=== PATIENT | male | born 1960 | race Caucasian/White ===

== ENCOUNTER 2022-06-06 16:08 | Emergency (ER) | payer BC ==
[~2022-06-06] VITALS: Ht 170.2 cm; Wt 70.3 kg
--- NOTE | 2022-06-06 16:20 | NUR ---
RECEIved pt61 yrs male came from home walking in c/o palpation and eren is locked pt anixity at this this time
--- NOTE | 2022-06-06 16:40 | NUR ---
0SEEN BY CARMELINA BECKFORD
--- NOTE | 2022-06-06 16:50 | NUR ---
BLOOD DROW AT BED SIDE
[2022-06-06] MEDS ORDERED: LORAZEPAM 1 MG TABLET PO ONE (17:00)
[2022-06-06] MEDS ORDERED: ALPRAZOLAM 0.5 MG TABLET ONE (17:11)
[2022-06-06] MEDS: ALPRAZOLAM 0.5 MG TABLET PO ONE (17:11)
--- NOTE | 2022-06-06 17:33 | NUR ---
VITAL SIGNS UPDATED.
--- NOTE | 2022-06-06 18:30 | NUR ---
Patient discharged to home in stable condition. Written and verbal after care instructions given. Patient verbalizes understanding of instruction.
[2022-06-06 18:34] VITALS: BP 147/85
== END 2022-06-06 18:35 | disposition home or self-care (01) ==
LOC: ER 16:44
DX: F41.9 Anxiety disorder, unspecified (principal); I11.9 Hypertensive heart disease without heart failure; D47.3 Essential (hemorrhagic) thrombocythemia; Z86.2 Personal history of diseases of the blood and blood-forming organs and certain disorders involving the immune mechanism; Z86.69 Personal history of other diseases of the nervous system and sense organs